=== PATIENT | female | born 1935 | race Caucasian/White ===

== ENCOUNTER 2016-09-25 07:13 | Day surgery (SDC) | payer BC ==
--- NOTE | ~2016-09-25 | EGD ---
EGD REPORT [facility] [address] [address] NAME: PANCHO ROBERTSON : 31 STATUS : REG [facility]#: [id number] AGE: 81 ADM/REG DATE : 09/25/16 MR#: [id number] REPORT SERV DATE: 09/25/16 DICTATED BY: FRANSISCA MCNALLY DATE: 09/25/16 REPORT STATUS : Draft TRANSCRIBED BY: [facility] DATE: 09/25/16 Endoscopy Center Patient Name: Pancho Robertson Date of : 1935 Attending MD: FRANSISCA MCNALLY MD Procedure Date No Time: 09/25/2016 Procedure: Upper GI endoscopy Indications: Iron deficiency anemia, Heme positive stool Referring MD: CARLOS FULLER Medicines: as per anesthesia Complications: No immediate complications. Procedure: Pre-Anesthesia Assessment: - ASA Grade Assessment: III - A patient with severe systemic disease. After obtaining informed consent, the endoscope was passed under direct vision. Throughout the procedure, the patient's blood pressure, pulse, and oxygen saturations were monitored continuously. The GIF [id number] [id number] was introduced through the mouth, and advanced to the third part of duodenum. The upper GI endoscopy was accomplished without difficulty. The patient tolerated the procedure. Findings: The examined esophagus was normal. The entire examined stomach was normal. The cardia and gastric fundus were normal on retroflexion. The examined duodenum was normal. Impression: - Normal esophagus. - Normal stomach. - Normal examined duodenum. Recommendation: - Continue present medications. Procedure Code(s): --- Professional --- 55588, Esophagogastroduodenoscopy, flexible, transoral; diagnostic, including collection of specimen(s) by brushing or washing, when performed (separate procedure) Diagnosis Code(s): --- Professional --- D50.9, Iron deficiency anemia, unspecified R19.5, Other fecal abnormalities EGD REPORT [facility] [address] [place] [address] NAME: PANCHO ROBERTSON : 31 STATUS : [place] [facility] [place]#: [id number] AGE: 81 ADM/REG DATE : 09/25/16 MR#: [id number] REPORT SERV DATE: 09/25/16 DICTATED BY: FRANSISCA MCNALLY DATE: 09/25/16 REPORT STATUS : Draft TRANSCRIBED BY: [employer] DATE: 09/25/16 CPT copyright 2013 [employer]. All rights reserved. The codes documented in this report are preliminary and upon audit clerk review may be revised to meet current compliance requirements. FRANSISCA MCNALLY MD 09/25/2016 9:01 AM This report has been signed electronically. Number of Addenda: 0 Note Initiated On: 09/25/2016 8:46 AM Scope Withdrawal Time 0 hours 0 minutes 0 seconds [address] [place] [address]
--- NOTE | ~2016-09-25 | EGD ---
EGD REPORT [facility] [address] [address] NAME: PANCHO ROBERTSON : 31 STATUS : REG [place]#: [id number] AGE: 81 ADM/REG DATE : 09/25/16 MR#: [id number] REPORT SERV DATE: 09/25/16 DICTATED BY: FRANSISCA MCNALLY DATE: 09/25/16 REPORT STATUS : Draft [facility]IB[facility]: [facility] DATE: 09/25/16 Endoscopy Center Patient Name: Pancho Robertson Date of : 1935 Attending MD: FRANSISCA MCNALLY MD Procedure Date No Time: 09/25/2016 Procedure: Colonoscopy Indications: Heme positive stool, Iron deficiency anemia Referring MD: CARLOS FULLER Medicines: as per anesthesia Complications: No immediate complications. Procedure: Pre-Anesthesia Assessment: - ASA Grade Assessment: III - A patient with severe systemic disease. After I obtained informed consent, the scope was passed under direct vision. Throughout the procedure, the patient's blood pressure, pulse, and oxygen saturations were monitored continuously. The PCF [id number] was introduced through the anus and advanced to the cecum, identified by appendiceal orifice and ileocecal valve. The colonoscopy was somewhat difficult due to multiple diverticula in the colon and a tortuous colon. The patient tolerated the procedure. The quality of the bowel preparation was adequate to identify polyps. Findings: The perianal and digital rectal examinations were normal. Multiple small and large-mouthed diverticula were found in the sigmoid colon and in the descending colon. Internal hemorrhoids were found during endoscopy and were mild. Impression: - Diverticulosis in the sigmoid colon and in the descending colon. - Internal hemorrhoids. Recommendation: - Continue present medications. Procedure Code(s): --- Professional --- 91618, Colonoscopy, flexible, proximal to splenic flexure; diagnostic, with or without collection of specimen(s) by brushing or washing, with or without colon decompression (separate procedure) Diagnosis Code(s): --- Professional --- K64.8, Other hemorrhoids EGD REPORT [address] [address] NAME: PANCHO ROBERTSON : 31 STATUS : REG [facility] PAT#: [id number] AGE: 81 ADM/REG DATE : 09/25/16 MR#: [id number] REPORT SERV DATE: 09/25/16 DICTATED BY: FRANSISCA MCNALLY. DATE: 09/25/16 REPORT STATUS : Draft TRANSCRIBED BY: [employer] DATE: 09/25/16 K57.30, Diverticulosis of large intestine without perforation or abscess without bleeding R19.5, Other fecal abnormalities D50.9, Iron deficiency anemia, unspecified CPT copyright 2013 [employer] [place] [employer]. All rights reserved. The codes documented in this report are preliminary and upon welder fitter helper review may be revised to meet current compliance requirements. FRANSISCA MCNALLY MD 09/25/2016 9:23 AM This report has been signed electronically. Number of Addenda: 0 Note Initiated On: 09/25/2016 8:59 AM Scope Withdrawal Time 0 hours 6 minutes 17 seconds
[~2016-09-25 07:13] MED LIST: ADVIL PO; ASA5GR PO; ASAB PO; BENTYL20 PO; CALTRA600D PO; CALTRAT600 PO; CORDARONE PO; EZFE 200200 MG PO; FERROUS SULF325 M1 PO; KLOR-CON 1010 MEQ PO; L20 PO; LIPITOR20 PO; LIPITOR40 PO; LOP50 PO; MCZ25 PO; MIRALAX POWDER1 PKT PO; NORCO1 TA1 PO; P125 PO; PLAVIX PO; PRILO PO; REQUIP2 PO; REQUIP3 PO; SYN.05 PO; TRAZ50 PO; ULTRAM50 PO; VITAMIN B-121000 MC1 SL; VITC500 PO; VOLT25 PO; VOLTAREN PO; ZINC220C PO; ZOCOR20 PO
== END 2016-09-25 23:59 | disposition home health service (06) ==
LOC: DMU 07:13
PROVIDERS: Internal Medicine Gastroenterology
PROC: 0DJD8ZZ Inspection of Lower Intestinal Tract, Via Natural or Artificial Opening Endoscopic (ICD-10-PCS; principal; 2016-09-25 08:30)
PROC: 0DJ08ZZ Inspection of Upper Intestinal Tract, Via Natural or Artificial Opening Endoscopic (ICD-10-PCS; 2016-09-25 08:30)
DX: K64.8 Other hemorrhoids (principal); K57.30 Diverticulosis of large intestine without perforation or abscess without bleeding; D50.9 Iron deficiency anemia, unspecified; I25.10 Atherosclerotic heart disease of native coronary artery without angina pectoris; K21.9 Gastro-esophageal reflux disease without esophagitis; E03.9 Hypothyroidism, unspecified; M19.90 Unspecified osteoarthritis, unspecified site; E78.00 Pure hypercholesterolemia, unspecified; Z86.73 Personal history of transient ischemic attack (TIA), and cerebral infarction without residual deficits; Z88.0 Allergy status to penicillin; Z79.82 Long term (current) use of aspirin; Z79.899 Other long term (current) drug therapy; Z90.49 Acquired absence of other specified parts of digestive tract; Z90.710 Acquired absence of both cervix and uterus; Z98.890 Other specified postprocedural states